=== PATIENT | female | born 1995 ===

== ENCOUNTER 2017-07-12 19:16 | Emergency (ER) | payer OTHER, SELFPAY ==
[2017-07-12] MEDS ORDERED: Bacitracin Zinc 1 Packet ONE (20:32)
[2017-07-12] MEDS ORDERED: Adacel (T-DAP) 0.5 ML VIAL ONE (20:52)
== END 2017-07-12 21:29 | disposition home or self-care (01) ==
LOC: ERS 19:16
DX: S80.211A Abrasion, right knee, initial encounter (principal); F41.9 Anxiety disorder, unspecified; V18.0XXA Pedal cycle driver injured in noncollision transport accident in nontraffic accident, initial encounter
CPT/HCPCS: 90471; 90715